=== PATIENT | male | born 1985 | race Caucasian/White ===

== ENCOUNTER 2021-03-11 14:50 | Emergency (ER) | payer OTHER ==
[~2021-03-11] VITALS: Ht 188 cm; Wt 138.3 kg
[2021-03-11] MEDS ORDERED: LEXAPRO20 MG PO (14:55)
[2021-03-11] MEDS ORDERED: CEPHALEXIN500 MG PO ×2 (16:10→16:50)
[2021-03-11 16:48] VITALS: BP 149/94
== END 2021-03-11 16:48 | disposition home or self-care (01) ==
LOC: M.ERS 14:50
DX: S61.210A Laceration without foreign body of right index finger without damage to nail, initial encounter (principal); Z88.2 Allergy status to sulfonamides; W26.8XXA Contact with other sharp object(s), not elsewhere classified, initial encounter; Y93.89 Activity, other specified; Y92.89 Other specified places as the place of occurrence of the external cause; Y99.8 Other external cause status